=== PATIENT | male | born 1980 | race Caucasian/White ===

== ENCOUNTER → 2019-11-14 15:13 | Outpatient (BNVA) | payer MEDICAID, SELFPAY | PROVIDERS: Visit Provider Nurse Practitioner Psychiatric/Mental Health | DX: F11.99 Opioid use, unspecified with unspecified opioid-induced disorder (principal) | CPT/HCPCS: 99213 ==

== ENCOUNTER → 2019-11-28 16:35 | Outpatient (BNVA) | payer MEDICAID, SELFPAY | PROVIDERS: Visit Provider Nurse Practitioner Psychiatric/Mental Health | DX: Z13.89 Encounter for screening for other disorder (principal) | CPT/HCPCS: 99211 ==

== ENCOUNTER → 2019-12-04 15:23 | Outpatient (BNVA) | payer MEDICAID, SELFPAY | PROVIDERS: Visit Provider Internal Medicine | DX: F11.99 Opioid use, unspecified with unspecified opioid-induced disorder (principal) | CPT/HCPCS: 80305; 99211 ==

== ENCOUNTER → 2020-01-01 15:47 | Outpatient (BNVA) | payer MEDICAID, SELFPAY | PROVIDERS: Visit Provider Nurse Practitioner Psychiatric/Mental Health | DX: F11.20 Opioid dependence, uncomplicated (principal) | CPT/HCPCS: 80305 ==

== ENCOUNTER → 2020-01-29 15:00 | Outpatient (BNVA) | payer MEDICAID, SELFPAY | PROVIDERS: Visit Provider Nurse Practitioner Psychiatric/Mental Health | DX: F11.99 Opioid use, unspecified with unspecified opioid-induced disorder (principal) | CPT/HCPCS: 80305; 96372; 99211; J2315 ==

== ENCOUNTER → 2020-02-26 15:27 | Outpatient (BNVA) | payer MEDICAID, SELFPAY | PROVIDERS: Visit Provider Nurse Practitioner Psychiatric/Mental Health | DX: F11.99 Opioid use, unspecified with unspecified opioid-induced disorder (principal); Z51.81 Encounter for therapeutic drug level monitoring | CPT/HCPCS: 80305; 96372; 99211 ==

== ENCOUNTER → 2020-04-06 12:03 | Outpatient (BNVA) | payer MEDICAID, SELFPAY | PROVIDERS: Visit Provider Internal Medicine | DX: F11.99 Opioid use, unspecified with unspecified opioid-induced disorder (principal) | CPT/HCPCS: 99212 ==

== ENCOUNTER 2020-04-17 03:44 | Emergency (ER) | payer MEDICAID, SELFPAY ==
[2020-04-17 04:13] VITALS: BP 135/82; PULSE 64; RESP 16; TEMP 36.7; O2SAT 96; BMI 25.8
--- NOTE | 2020-04-17 05:26 | ED.EYEPROB ---
HPI - Eye Problem General Chief complaint: Eye Problems Stated complaint: Eye pain Time Seen by Provider: 04/17/20 05:15 Source: patient Mode of arrival: ambulatory History of Present Illness HPI Narrative: This is a 39-year-old male who states that he developed redness in his right eye for 2 days with greenish discharge and denies any associated fevers, chills, pain on movement, or itching. He then states he began developing similar symptoms in the left eye, but states that he initially thought some paint had gotten into his eye. Related Data Previous Rx's Medication Instructions Recorded naltrexone microspheres 380 mg 380 mg IM Q4W #1 ea 11/14/19 intramuscular suspension,extended release buprenorphine HCl 8 mg sublingual 8 mg SUBLINGUAL BID 7 Days #14 tab 04/07/20 tablet buprenorphine 8 mg-naloxone 2 mg 2 film SUBLINGUAL DAILY 5 Days #10 04/09/20 sublingual film ea Allergies Allergy/AdvReac Type Severity Reaction Status Date / Time naloxone Allergy Intermediate Rash, Verified 04/17/20 04:31 [From [facility] Naloxone] itching Penicillins Allergy Unknown HIVES/ITCHI Verified 04/17/20 04:31 NG acetaminophen [From Vicodin] AdvReac Intermediate Hives Verified 04/17/20 04:31 hydrocodone [From Vicodin] AdvReac Intermediate Hives Verified 04/17/20 04:31 Review of Systems Review of Systems: Pertinent positives and negatives as stated in HPI 10 point review of systems is otherwise negative. PMFSH Past Medical History Source: nursing notes reviewed Medical History Methadone maintenance therapy patient Opioid abuse Surgical History History of back surgery Social History Social History Smoking Status: Current every day smoker Use of substances other than those prescribed or required for medical reasons: Yes Substance Use Type: Crack/Cocaine and Heroin Substance Use Frequency: Chronic Longstanding Any prior treatment program specific to substance use: Yes (Patient is currently on Methadone) Advance Directives: No Physical Exam Vital Signs: Vital Signs: Last Vital Signs Temp 98.0 F 04/17/20 04:13 Pulse 64 04/17/20 04:13 Resp 16 04/17/20 06:00 BP 135/82 04/17/20 04:13 Pulse Ox 96 04/17/20 04:13 Body Mass Index 25.8 VITAL SIGNS: Reviewed. GENERAL: Well developed, well nourished, in no acute distress. HEAD: Normocephalic/atraumatic, EYES: PERRLA, EOMI intact without pain, conjunctival inflammation/injection but right more than left OROPHARYNX: no oral lesions noted, posterior pharynx clear NECK: Supple, no adenopathy LUNGS: Normal breath sounds. No adventitious sounds or accessory muscle use. SpO2<96> CARDIOVASCULAR: Regular rate and rhythm without noted murmurs ABDOMEN: Soft, non-tender, non-distended with bowel sounds. MUSCULOSKELETAL: No tenderness, deformities, or effusions noted on gross inspection. EXTREMITIES: No cyanosis, clubbing or edema. SKIN: Inspection of the skin reveals no rashes NEUROLOGIC: Alert and oriented x 4. Course Course Course Narrative: This is a 39-year-old male with history and clinical presentation most consistent with bacterial conjunctivitis and was provided with initial ophthalmological antibiotic here in the emergency department and then discharged with remaining prescription. In addition, patient was strongly encouraged to follow up with Optometry/naval gunfire spotter today for re-evaluation. Discharge Plan Discharge Clinical Impression: Bacterial conjunctivitis Patient Disposition: Home, Self-Care Instructions: Conjunctivitis (ED) Additional Instructions: Please follow-up with optometry/naval gunfire spotter today for re-evaluation of your eyes. Please use the antibiotic for your eyes as instructed. Do not hesitate to return to the emergency department should your symptoms not resolve or if they should worsen. Prescriptions: No Action Vivitrol 380 mg suspension,extended rel recon 380 mg IM Q4W Qty: 1 RF: 6 Hold Instructions: Doctor's Order buprenorphine HCl 8 mg tablet, sublingual 8 mg sublingual BID 7 Days Qty: 14 RF: 0 buprenorphine-naloxone [Suboxone] 8-2 mg film 2 film sublingual DAILY 5 Days Qty: 10 RF: 0 Referrals: Physician,None [Primary Care Provider] - 2 days
[2020-04-17 06:00] VITALS: RESP 16
[2020-04-17] MEDS: Erythromycin Base 0.5% Oph Oin 1 GM TUBE 1 CM EYE-BOTH (06:04)
== END 2020-04-17 06:30 | disposition home or self-care (01) ==
PROVIDERS: Emergency Provider Student in an Organized Health Care Education/Training Program
DX: H10.89 Other conjunctivitis (principal); F11.20 Opioid dependence, uncomplicated; F17.200 Nicotine dependence, unspecified, uncomplicated
CPT/HCPCS: 99283; 99284

== ENCOUNTER 2021-03-08 16:35 | Outpatient (REF) | payer MEDICAID, SELFPAY ==
--- NOTE | ~2021-03-08 | XR_ITS ---
EXAMINATION: XR TIBIA AND FIBULA, LEFT CLINICAL INFORMATION: Pain COMPARISON: None TECHNIQUE: AP and lateral views of the left tibia and fibula were obtained. FINDINGS: Bone alignment is normal. No fracture or dislocation is seen. The joint spaces are normal. There is slight soft tissue swelling over the upper fry. Soft tissues are otherwise normal. XR/XR tibia fibula LT 2V IMPRESSION: Soft tissue swelling over the upper fry otherwise unremarkable exam.
== END 2021-03-08 16:36 | disposition home or self-care (01) ==
LOC: HO.HMGCX 16:35
PROVIDERS: Visit Provider Physician Assistant
DX: M79.662 Pain in left lower leg (principal)
CPT/HCPCS: 73590

== ENCOUNTER 2021-11-14 14:09 | Emergency (ER) | payer MEDICAID, SELFPAY ==
[2021-11-14 14:20] VITALS: BP 116/83; PULSE 59; RESP 18; TEMP 36.9; O2SAT 98; BMI 25.1
--- NOTE | 2021-11-14 16:23 | PC.NURSE ---
pt presents with red abcess to right wrist. denies insect bite, or trauma- sts it is most likely due to IVD
--- NOTE | 2021-11-14 16:42 | ED_ITS ---
HPI - Skin/Abscess/Foreign Bdy General Chief complaint: Wound/Laceration Stated complaint: Abscess Time Seen by Provider: 11/14/21 16:39 Source: patient Mode of arrival: ambulatory Limitations: no limitations History of Present Illness HPI narrative: 41-year-old male presents for abscess to the left wrist. He infiltrated heroin outside of the vein to his left wrist 5 days ago, he has no suspicion of foreign body as the needle was intact when he removed it. Swelling and abscess started 4 days ago. He does not describe fevers or chills, and has full range of motion to his hand although it hurts when he moves his fingers. MD complaint: abscess/boil Onset (ago): day(s) (5) Tetanus up to date: no Location: LUE Severity: moderate Severity scale (1-10): 5 Quality: aching and constant Pain Consistency: constant Relieving factors: none Exacerbating factors: palpation and movement Context: IVDA Associated symptoms: denies other symptoms Treatments prior to arrival: attempted to drain pus at home Related Data Previous Rx's Medication Instructions Recorded sulfamethoxazole 800 1 tab PO Q12H 10 days #20 tabs 03/08/21 mg-trimethoprim 160 mg tablet (Bactrim DS) doxycycline monohydrate 100 mg 100 mg PO BID 10 days #20 caps 11/14/21 capsule sulfamethoxazole 800 1 tab PO Q12H 7 days #14 tabs 11/14/21 mg-trimethoprim 160 mg tablet (Bactrim DS) Allergies Allergy/AdvReac Type Severity Reaction Status Date / Time naloxone Allergy Intermediate Rash, Verified 03/08/21 16:04 [From [facility] Naloxone] itching Penicillins Allergy Unknown HIVES/ITCHI Verified 03/08/21 16:04 NG acetaminophen [From Vicodin] AdvReac Intermediate Hives Verified 03/08/21 16:04 hydrocodone [From Vicodin] AdvReac Intermediate Hives Verified 03/08/21 16:04 Review of Systems Review of Systems: Constitutional: No Fever, No Chills ENT/Mouth: No Ear Pain, No Hoarseness, No sore throat Eyes: No Eye Pain, No Swelling, No Redness, No Foreign Body Cardiovascular: No Chest Pain, No SOB Respiratory: No Cough, No Dyspnea Gastrointestinal: No Nausea, No Vomiting, No Diarrhea, No abdominal Pain Genitourinary: No Dysuria, No Hematuria Musculoskeletal: positive left wrist pain, No Myalgias, No Joint Swelling Skin: Left wrist abscess, No Skin lacerations, No rash Neuro: No Weakness, No Numbness, No Paresthesias, No Loss of Consciousness, No Dizziness, No Headache Psych: No Anxiety/Panic, No Depression Heme/Lymph: no easy bruising, no Lymphadenopathy Endocrine: No Polyuria, No Polydipsia Yes all other systems are reviewed and are negative [facility], [facility] Past Medical History Attestation statement: The following information was validated with the patient. Source: old records reviewed Medical History Methadone maintenance therapy patient Opioid abuse Surgical History History of back surgery Social History Social History Substance Use Type: Crack/Cocaine and Heroin Advance Directives: No Advance Directives Information Provided: Yes Physical Exam Vital Signs: Vital Signs: Last Vital Signs Temp 98.4 F 11/14/21 14:20 Pulse 59 11/14/21 14:20 Resp 18 11/14/21 14:20 BP 116/83 11/14/21 14:20 Pulse Ox 98 11/14/21 14:20 O2 Del Method 11/14/21 14:20 BMI result Body Mass Index 25.1 Appearance: Alert. Oriented X3. No acute distress. Eyes: Pupils equal, round and reactive to light. ENT: Pharynx normal. Neck: Normal inspection. Neck supple. CVS: Normal heart rate and rhythm. Pulses normal. Respiratory: No respiratory distress. Breath sounds normal. Abdomen: Soft and nontender. Skin: 4 cm x 3 cm erythematous indurated abscess to the radial aspect of the left wrist, 2 cm above the radial lunate. Extremities: No lower extremity edema. Strength 5/5 to all extremities. No flexion or extension tendon deficits. Neuro: No motor deficit. No sensory deficit. Cranial nerves 2-12 intact. Course Course Course Narrative: 41-year-old male presents with abscess to the left radial aspect of the wrist. Abscess started after he infiltrated heroin 5 days ago. Denies foreign body as the needle was intact upon removal. He just left detox and is declining recovery services at this time. Patient understands I&D process with abscess and agrees to plan of care. He has full range of motion, strength 5/5, radial pulses are equal, no indication of tenosynovitis, afebrile, nontoxic. Brisk capillary refill and +2 brachial and radial reflexes. 17:20 about 10 mL of purulent drainage expressed from the site. Packed with about 3 in of 1 in iodoform packing. Will update Tdap vaccine today, and give doxycycline as he has anaphylactic to penicillins. Culture sent. 18:00 patient continues with brisk capillary refill, full range of motion to all digits. Plan of care is to discharge home and have patient follow-up in 3 days. Patient verbalized understanding of and agrees plan of care discharge home. Verbalized understanding of signs and symptoms indicating need for emergent intervention. MDM - Skin/Abscess/Foreign Bdy Differential Diagnosis Differential diagnosis: Likely abscess of skin or subcutaneous tissue and cellulitis Medical Records Attestation: I reviewed the patient's medical records. Procedures Abscess I/D Site: upper extremity Side (if applicable): left Local Anesthetic: lidocaine 2% and with epi Amount of anesthesia used (mL): 6 Technique: incised with blade Amount of fluid expressed (mL): 10 Sent for culture/gram staining?: Yes Irrigation: Yes Packing used?: iodoform Discharge Plan Discharge Clinical Impression: Abscess Patient Disposition: Home, Self-Care Instructions: Abscess (ED), Abscess Follow-up (ED), Abscess Incision and Drainage (DC), Incision and Drainage (ED) Additional Instructions: You were evaluated for abscess to left wrist. Your cultures are pending. Please keep packing in place for 3 days. Return for wound check in 3 days. Take doxycycline 100 mg every 12 hours for the next 10 days. Take Bactrim DS every 12 hours for the next 7 days. Please consider detox. Monitor for signs and symptoms of infection. If you notice worsening pain or redness fevers chills please return to the emergency department for evaluation. Prescriptions: New doxycycline monohydrate 100 mg capsule 100 mg PO BID 10 Days Qty: 20 0RF sulfamethoxazole-trimethoprim [Bactrim DS] 800-160 mg tablet 1 tab PO Q12H 7 Days Qty: 14 0RF No Action sulfamethoxazole-trimethoprim [Bactrim DS] 800-160 mg tablet 1 tab PO Q12H 10 Days Qty: 20 0RF Interventions: ED Discharge Assessment Last Done: 11/14/21 18:40 Discharge Date/Time: 11/14/21 18:40
[2021-11-14] MEDS: Diphth,Pertus(ACell),Tet Adult 0.5 ML SYRINGE IM (18:02)
[2021-11-14] MEDS: Lidocaine HCl 2%/Epi 1:100,000 20 ML VIAL INFILTRATI (18:05)
== END 2021-11-14 18:40 | disposition home or self-care (01) ==
PROVIDERS: Emergency Provider Emergency Medicine Emergency Medical Services
DX: L02.414 Cutaneous abscess of left upper limb (principal); F11.19 Opioid abuse with unspecified opioid-induced disorder; Z79.899 Other long term (current) drug therapy
CPT/HCPCS: 10060; 87070; 87147; 87205; 90471; 90715; 99282; 99284

== ENCOUNTER 2021-11-30 10:13 | Emergency (ER) | payer MEDICAID, SELFPAY ==
--- NOTE | ~2021-11-30 | XR_ITS ---
EXAMINATION: XR TIBIA AND FIBULA, LEFT CLINICAL INFORMATION: Left lower extremity pain. COMPARISON: 02/26/2021 left tibia and fibula. TECHNIQUE: AP and lateral views of the left tibia and fibula were obtained. FINDINGS: The bones and soft tissues are normal. No fracture. No osseous lesions. XR/XR tibia fibula LT 2V IMPRESSION: Unremarkable left tibia and fibula. Previously seen anterior soft tissue swelling in the fry has decreased.
--- NOTE | ~2021-11-30 | US_ITS ---
EXAMINATION: US VENOUS ULTRASOUND WITH DOPPLER LOWER EXTREMITY, LEFT CLINICAL INFORMATION: Pain COMPARISON: None TECHNIQUE: Ultrasound of the deep veins is performed from the hip to the calf with compression sonography and color and pulse Doppler assessment. Spectral analysis with color-flow imaging is performed. FINDINGS: There is normal venous compression and respiratory variation and augmented flow. The visualized common femoral vein, superficial femoral vein, profunda femoral vein, popliteal vein, and the trifurcation region shows no evidence of deep venous thrombosis. There is no significant popliteal fossa cyst. US/US venous duplex LE LT IMPRESSION: No DVT demonstrated in the left lower extremity.
--- NOTE | ~2021-11-30 | XR_ITS ---
EXAMINATION: XR ANKLE, LEFT CLINICAL INFORMATION: Left ankle pain. COMPARISON: None TECHNIQUE: AP, lateral, and mortise views of the left ankle. FINDINGS: The bones and soft tissues are normal. No fracture. Alignment is anatomic. Joint spaces are maintained. No joint effusion. XR/XR ankle LT min 3V IMPRESSION: Unremarkable left ankle.
[2021-11-30 10:38] VITALS: BP 117/68; PULSE 60; RESP 18; TEMP 36.8; O2SAT 96; BMI 23.6
--- NOTE | 2021-11-30 11:15 | ED.EXTPRO ---
HPI - Extremity Problem General Chief complaint: Extremity Injury, Lower Stated complaint[facility] Time Seen by Provider: 11/30/21 10:30 Source: patient and EMS Mode of arrival: EMS Limitations: no limitations History of Present Illness HPI Narrative: 41yoM c PMHx of HCV, opioid and cocaine dependent currently was at [facility] for detox arrived yesterday presenting to the ED with complaints of a ?lump?, to his left lower leg with mild tenderness over the past few days. Reports that it is not that painful although he does not recall an injury. He did not want to come here although the staff at [facility] recommended he come here. They did report that he lost his bed due to coming to the ER that he will need to do a new intake. Otherwise he denies any recent falls, fevers, dizziness, headaches, chest pain or shortness of breath, dyspnea on exertion, orthopnea, palpitations, paresthesias, recent travel, recent mobilization, recent surgery, hypercoagulation disorder, any estrogen usage, calf tenderness, edema or any other symptoms complaints or concerns at this time. MD Complaint: extremity pain Onset (ago): day(s) (Past few days) Pain Consistency: constant Location: left and lower extremity Quality: aching Radiation: none Relieving factors: nothing Exacerbating factors: palpation Associated symptoms: denies other symptoms Related Data Previous Rx's Medication Instructions Recorded sulfamethoxazole 800 1 tab PO Q12H 10 days #20 tabs 03/08/21 mg-trimethoprim 160 mg tablet (Bactrim DS) doxycycline monohydrate 100 mg 100 mg PO BID 10 days #20 caps 11/14/21 capsule sulfamethoxazole 800 1 tab PO Q12H 7 days #14 tabs 11/14/21 mg-trimethoprim 160 mg tablet (Bactrim DS) naproxen 500 mg tablet 500 mg PO BID PRN pain #14 tabs 11/30/21 Allergies Allergy/AdvReac Type Severity Reaction Status Date / Time naloxone Allergy Intermediate Rash, Verified 03/08/21 16:04 [From [facility] Naloxone] itching Penicillins Allergy Unknown HIVES/ITCHI Verified 03/08/21 16:04 NG acetaminophen [From Vicodin] AdvReac Intermediate Hives Verified 03/08/21 16:04 hydrocodone [From Vicodin] AdvReac Intermediate Hives Verified 03/08/21 16:04 Review of Systems Review of Systems: Constitutional : No Weight loss, No Fever, No Chills, No Night Sweats, No Fatigue, No Malaise ENT/Mouth : No Hearing loss, No Ear Pain, No Nasal Congestion, No Sinus Pain, No Hoarseness, No sore throat, No Rhinorrhea, No Swallowing Difficulty Eyes: No Eye Pain, No Swelling, No Redness, No Foreign Body, No Discharge, No Vision Changes Cardiovascular : No Chest Pain, No SOB, No Dyspnea on Exertion, No Orthopnea, No Edema, No Palpitations Respiratory : No Cough, No Sputum, No Wheezing, No Smoke Exposure, No Dyspnea Gastrointestinal : No Nausea, No Vomiting, No Diarrhea, No Constipation, No abdominal Pain, No Hematochezia, No Melena Genitourinary : no irregular bleeding, No Dysuria, No Urinary Frequency, No Hematuria, No Urinary Incontinence, No Urgency, No Flank Pain, No Urinary Flow Changes, No Hesitancy Musculoskeletal : + left LLE joint pain, No Myalgias, No Joint Swelling Skin : No Skin Lesions, No rash Neuro : No Weakness, No Numbness, No Paresthesias, No Loss of Consciousness, No Dizziness, No Headache Psych : No Anxiety/Panic, No Depression, No SI/HI/AH/VH, No Social Issues, Heme/Lymph: No Bruising, No Bleeding,No Lymphadenopathy Endocrine : No Polyuria, No Polydipsia, No Temperature Intolerance Yes all other systems are reviewed and are negative [facility] Past Medical History Attestation statement: The following information was validated with the patient. Source: old records reviewed and nursing notes reviewed Medical History Methadone maintenance therapy patient Opioid abuse Surgical History History of back surgery Social History Social History Substance Use Type: Crack/Cocaine and Heroin Advance Directives: No Physical Exam Vital Signs: Vital Signs: Last Vital Signs Temp 98.2 F 11/30/21 10:38 Pulse 60 11/30/21 10:38 Resp 18 11/30/21 10:38 BP 117/68 11/30/21 10:38 Pulse Ox 96 11/30/21 10:38 O2 Del Method 11/30/21 10:38 BMI result Body Mass Index 23.6 vital signs have been reviewed as normal and appeared to be correct. Blood pressure normal Heart rate normal. Respiration rate normal. Temperature normal. Oxygen saturation normal. Appearance: Alert. Oriented X3. No acute distress. Head: Normal external exam. Normocephalic. Atraumatic. Eyes: PERRLA. EOMI. Conjunctiva and sclera normal. Eyelids normal. ENT: Pharynx normal. Uvula midline. Moist mucous membranes. Neck: Normal inspection. Neck supple. FROM. CVS: Normal heart rate and rhythm. Respiratory: No respiratory distress. Painless inspiration. Skin: Skin warm and dry. Normal skin color. Normal skin turgor. No rashes/lesions/lacerations noted. Extremities: Patient mild tenderness palpation to the distal aspect of the lateral lower leg with mild soft tissue swelling. No obvious deformities noted. Negative Mejia test. Achilles tendon is intact. Patient has full range of motion of all toe/foot and ankle joint and knee joint without any tenderness. There is no lower extremity edema or calf tenderness noted. Otherwise all other extremities exhibit normal range of motion nontender. Neuro: Oriented X 3. No motor deficit. No sensory deficit. Reflexes normal. Normal steady gait. No focal neuro deficits noted. Vascular: + radial pulses/+ 2 distal pedal pulses/+2 dorsalis pedis b/l. Normal cap refill. No cyanosis noted to upper extremity nails and lower extremity toes nails. Course Course Course Narrative: 41yoM c PMHx of HCV, opioid and cocaine dependent currently was at [facility] for detox arrived yesterday presenting to the ED with complaints of a ?lump?, to his left lower leg with mild tenderness over the past few days. Reports that it is not that painful although he does not recall an injury. He did not want to come here although the staff at [facility] recommended he come here. They did report that he lost his bed due to coming to the ER that he will need to do a new intake. Will obtain x-ray of tibia/fibula/left ankle and performed ultrasound of left lower extremity re-evaluate. Reevaluation(s) Reevaluation #1: - left ankle/tibia/fibula x-ray reveals soft tissue swelling that has decreased otherwise no other acute processes. Venous duplex ultrasound of left lower extremity negative for DVT or any other acute processes. Patient most likely muscular skeletal pain will DC home with symptomatic treatment an [place] wrap and instructions to return if any new or worsening symptoms. Will have care team work with the patient to see if the patient can get back into detox. Time: 13:40 Reevaluation #2: - patient is being accepted back to the detox at [facility] therefore he will be discharged and transported there at this time. Time: 14:47 MDM - Extremity (Nontraumatic) Medical Records Attestation: I reviewed the patient's medical records. Imaging Data Left tibia/fibula/left ankle x-ray: Attestation: I personally reviewed and interpreted this imaging study as follows: Radiologist's impression: FINDINGS: The bones and soft tissues are normal. No fracture. No osseous lesions. ? XR/XR tibia fibula LT 2V IMPRESSION: Unremarkable left tibia and fibula. Previously seen anterior soft tissue swelling in the fry has decreased. FINDINGS: The bones and soft tissues are normal. No fracture. Alignment is anatomic. Joint spaces are maintained. No joint effusion.? XR/XR ankle LT min 3V IMPRESSION: Unremarkable left ankle. Venous duplex ultrasound of left lower extremity: Attestation: I personally reviewed and interpreted this imaging study as follows: Radiologist's impression: FINDINGS: There is normal venous compression and respiratory variation and augmented flow. The visualized common femoral vein, superficial femoral vein, profunda femoral vein, popliteal vein, and the trifurcation region shows no evidence of deep venous thrombosis. ? There is no significant popliteal fossa cyst. US/US venous duplex LE LT IMPRESSION: No DVT demonstrated in the left lower extremity. Discharge Plan Discharge Clinical Impression: Muscle strain of left lower extremity Patient Disposition: Home, Self-Care Instructions: Musculoskeletal Pain (ED) Prescriptions: New naproxen 500 mg tablet 500 mg PO BID PRN (Reason: pain) Qty: 14 0RF No Action doxycycline monohydrate 100 mg capsule 100 mg PO BID 10 Days Qty: 20 0RF sulfamethoxazole-trimethoprim [Bactrim DS] 800-160 mg tablet 1 tab PO Q12H 7 Days Qty: 14 0RF sulfamethoxazole-trimethoprim [Bactrim DS] 800-160 mg tablet 1 tab PO Q12H 10 Days Qty: 20 0RF Referrals: Physician,None [Primary Care Provider] - (your pcp as needed )
--- NOTE | 2021-11-30 14:04 | MHC.RECOVRN ---
This senior writer met w/ pt. Pt is reporting no withdrawal symptoms at this time, pt reports received MTD dose at [facility] this a.m. This senior writer discussed w/ pt that most current ED note was faxed to [facility], currently being reviewed as confirmed by [facility], pt reminded that if their is no male bed at [facility] Addiction/Recovery team would do an ATS bedsearch. Pt verbalized understanding.
== END 2021-11-30 15:20 | disposition home or self-care (01) ==
PROVIDERS: Emergency Provider Emergency Medicine Emergency Medical Services
DX: M79.605 Pain in left leg (principal); R60.0 Localized edema; F14.10 Cocaine abuse, uncomplicated; F11.10 Opioid abuse, uncomplicated; Z79.899 Other long term (current) drug therapy
CPT/HCPCS: 73590; 73610; 93971; 99283; 99284

== ENCOUNTER 2021-12-12 09:11 | Emergency (ER) | payer MEDICAID, SELFPAY ==
[2021-12-12 09:18] VITALS: BP 119/57; PULSE 65; RESP 18; TEMP 36.4; O2SAT 98; BMI 24.7
--- NOTE | 2021-12-12 09:27 | ED_ITS ---
HPI - Wound/Laceration General Chief Complaint: General Medical Stated Complaint: Needs lab work? Time Seen by Provider: 12/12/21 09:22 Source: patient and family (Mother at bedside) Mode of arrival: ambulatory Limitations: no limitations History of Present Illness HPI narrative: 41-year-old male with a past medical history of IV drug use presenting to the ED with his mother at bedside with request for his blood to be drawn which include hepatitis and HIV status due to his mother stuck herself with 1 of his dirty needles that he used it she was seen here yesterday and was given antivirals. Patient reports he is unsure if he has hepatitis or HIV. He denies any symptoms at this time. He denies any thoughts of SI/HI/auditory visualizations thoughts of self-injury. Reports he is not interested detox at this time. He is requesting us to give all the information to his mother of his blood work and his medical records. Related Data Previous Rx's Medication Instructions Recorded sulfamethoxazole 800 1 tab PO Q12H 10 days #20 tabs 03/08/21 mg-trimethoprim 160 mg tablet (Bactrim DS) doxycycline monohydrate 100 mg 100 mg PO BID 10 days #20 caps 11/14/21 capsule sulfamethoxazole 800 1 tab PO Q12H 7 days #14 tabs 11/14/21 mg-trimethoprim 160 mg tablet (Bactrim DS) naproxen 500 mg tablet 500 mg PO BID PRN pain #14 tabs 11/30/21 Allergies Allergy/AdvReac Type Severity Reaction Status Date / Time naloxone Allergy Intermediate Rash, Verified 12/12/21 09:17 [From [facility] Naloxone] itching Penicillins Allergy Unknown HIVES/ITCHI Verified 12/12/21 09:17 NG acetaminophen [From Vicodin] AdvReac Intermediate Hives Verified 12/12/21 09:17 hydrocodone [From Vicodin] AdvReac Intermediate Hives Verified 12/12/21 09:17 Review of Systems Review of Systems: Constitutional : No Fever, No Chills ENT/Mouth : No Ear Pain, No Nasal Congestion, No sore throat Eyes: No Eye Pain, No Swelling, No Redness Cardiovascular : No Chest Pain, No SOB Respiratory : No Cough, No Sputum, No Dyspnea Gastrointestinal : No ingestions, No Nausea, No Vomiting, No Diarrhea, No Hematochezia, No Melena Genitourinary : No Dysuria, No Urinary Frequency, No Hematuria Musculoskeletal : No Myalgias Skin : No Skin Lesions, No rash Neuro : No Weakness, No Numbness, No Paresthesias, No Dizziness, No Headache Psych : No Anxiety, No Depression, No SI/HI, No AVH, No thoughts of self injury Heme/Lymph: No Lymphadenopathy Endocrine : No Polyuria, No Polydipsia Yes all other systems are reviewed and are negative [facility] Past Medical History Attestation statement: The following information was validated with the patient. Source: old records reviewed, obtained from family and nursing notes reviewed Medical History Methadone maintenance therapy patient Opioid abuse Surgical History History of back surgery Social History Social History Substance Use Type: Crack/Cocaine and Heroin Advance Directives: No Physical Exam Vital Signs: Vital Signs: Last Vital Signs Temp 97.5 F 12/12/21 09:18 Pulse 65 12/12/21 09:18 Resp 18 12/12/21 09:18 BP 119/57 L 12/12/21 09:18 Pulse Ox 98 12/12/21 09:18 O2 Del Method 12/12/21 09:18 BMI result Body Mass Index 24.7 vital signs have been reviewed as normal and appeared to be correct. Blood pressure normal Heart rate normal. Respiration rate normal. Temperature normal. Oxygen saturation normal. Appearance: Alert. Oriented X3. No acute distress. Head: Normal external exam. Normocephalic. Atraumatic. Eyes: PERRLA. EOMI. Conjunctiva and sclera normal. Eyelids normal. ENT: Pharynx normal. Uvula midline. Moist mucous membranes. Neck: Normal inspection. Neck supple. FROM. CVS: Normal heart rate and rhythm. Respiratory: No respiratory distress. Painless inspiration. Skin: Skin warm and dry. Normal skin color. Normal skin turgor. No rashes/lesions/lacerations noted. Extremities: Extremities exhibit normal range of motion. Extremities nontender. Neuro: Oriented X 3. No motor deficit. No sensory deficit. Reflexes normal. Normal steady gait. No focal neuro deficits noted. Vascular: + radial pulses/+ 2 distal pedal pulses/+2 dorsalis pedis b/l. Normal cap refill. No cyanosis noted to upper extremity nails and lower extremity toes nails. Course Course Course Narrative: 41-year-old male with a past medical history of IV drug use presenting to the ED with his mother at bedside with request for his blood to be drawn which include hepatitis and HIV status due to his mother stuck herself with 1 of his dirty needles that he used it she was seen here yesterday and was given antivirals. Patient reports he is unsure if he has hepatitis or HIV. He denies any symptoms at this time. He denies any thoughts of SI/HI/auditory visualizations thoughts of self-injury. Reports he is not interested detox at this time. He is requesting us to give all the information to his mother of his blood work and his medical records. - Labs obtained and patient mild anemia with an H&H of 12.9/39.4. BUN creatinine 17/1.49. AST 42. Otherwise all other labs are within normal limits. - pending HIV and hepatitis B and C status. - I offered the patient IV fluids although patient reports he can drink fluids as he is not having any nausea vomiting he would like to just be discharged at this time. Explained to him that he does have some dehydration due to his kidney function and patient was still like to be discharged. Explained that we can give his mother all of his results. MDM - Wound/Laceration Medical Records Attestation: I reviewed the patient's medical records. Lab Data Attestation: I reviewed the patient's lab results. Result diagrams: 12/12/21 09:29 12/12/21 09:29 Labs: Lab Results 12/12/21 12/12/21 Range/Units 09:29 09:29 WBC 5.7 (4.8-10.8) X10*3/uL RBC 5.18 (4.60-5.80) X10*6/uL Hgb 12.9 L (14.0-18.0) g/dl Hct 39.4 L (42.0-52.0) % MCV 76.1 L (80.0-98.0) fL MCH 24.9 L (27.0-33.0) pg MCHC 32.7 (31.0-36.0) g/dl RDW 14.4 (11.0-16.0) % Plt Count 224 (160-400) X10*3/uL MPV 8.9 L (9.4-12.4) fL Immature Gran % (Auto) 0.2 (0.0-0.4) % Neut % (Auto) 66.3 (45-73) % Lymph % (Auto) 21.0 (20-40) % [place] % (Auto) 10.8 (2-11) % Eos % (Auto) 1.2 (0-4) % Baso % (Auto) 0.5 (0-2) % Lymph # (Auto) 1.2 (1.2-4.9) X10*3/uL [place] # (Auto) 0.6 (0.1-1.2) X10*3/uL Eos # (Auto) 0.1 (0.0-0.4) X10*3/uL Baso # (Auto) 0.0 (0.0-0.2) X10*3/uL Abs Immat Gran (auto) 0.01 (0.00-0.03) X10*3/uL Absolute Neuts (auto) 3.8 (2.0-8.3) x10*3/uL Absolute Nucleated RBC 0.000 (0.0-0.012) X10*3/uL Nucleated RBC % (auto) 0.0 (0.0-0.2) /100WBC Sodium 138 (135-145) mmol/L Potassium 4.1 (3.3-5.1) mmol/L Chloride 102 (96-108) mmol/L Carbon Dioxide 24 (22-29) mmol/L Anion Gap 16 (12-20) BUN 17 H (9-16) mg/dL Creatinine 1.49 H (0.5-1.4) mg/dL Estim Creat Clear Calc 65.2 Estimated GFR 52 Random Glucose 102 (60-115) mg/dL Calcium 9.0 (8.4-10.2) mg/dL Magnesium 2.2 (1.6-2.6) mg/dL Total Bilirubin 0.6 (0.0-1.0) mg/dL AST 42 H (5-37) U/L ALT 36 (0-40) U/L Alkaline Phosphatase 84 (39-117) U/L Total Protein 7.0 (6.5-8.0) g/dL Albumin 3.7 (3.5-5.0) g/dL Discharge Plan Discharge Clinical Impression: Drug usage, ROBERTA (acute kidney injury) Patient Disposition: Home, Self-Care Instructions: Polysubstance Abuse (ED) Additional Instructions: Your Mother was stuck by a needle that you used and you gave her permission to have your lab information given to your mother this will return in 5-7 days. Prescriptions: No Action doxycycline monohydrate 100 mg capsule 100 mg PO BID 10 Days Qty: 20 0RF sulfamethoxazole-trimethoprim [Bactrim DS] 800-160 mg tablet 1 tab PO Q12H 7 Days Qty: 14 0RF naproxen 500 mg tablet 500 mg PO BID PRN (Reason: pain) Qty: 14 0RF sulfamethoxazole-trimethoprim [Bactrim DS] 800-160 mg tablet 1 tab PO Q12H 10 Days Qty: 20 0RF Referrals: Physician,None [Primary Care Provider] - 2 days (your pcp) Interventions: ED Discharge Assessment Last Done: 12/12/21 09:50 Discharge Date/Time: 12/12/21 09:55
--- NOTE | 2021-12-12 09:28 | PC.NURSE ---
patient verbally gave permission to allow the mother to have results of the blood testing.
[2021-12-12 09:33] LABS: MANUAL DIFF FLAG NO
[2021-12-12 09:34] LABS: Basophils Percent Auto 0.5 % (0-2); Eosinophils Absolute Auto 0.1 X10*3/uL (0.0-0.4); Eosinophils Percent Auto 1.2 % (0-4); Hematocrit 39.4 % (42.0-52.0); Hemoglobin 12.9 g/dl (14.0-18.0); Imm Gran Abs Auto 0.01 X10*3/uL (0.00-0.03); Imm Gran Pct Auto 0.2 % (0.0-0.4); Lymphocytes Absolute Auto 1.2 X10*3/uL (1.2-4.9); Mean Corpuscular HGB Conc 32.7 g/dl (31.0-36.0); Mean Corpuscular Hemoglobin 24.9 pg (27.0-33.0); Mean Corpuscular Volume 76.1 fL (80.0-98.0); Mean Platelet Volume 8.9 fL (9.4-12.4); Monocytes Absolute Auto 0.6 X10*3/uL (0.1-1.2); Monocytes Percent Auto 10.8 % (2-11); Neutrophils Absolute Auto 3.8 x10*3/uL (2.0-8.3); Neutrophils Percent Auto 66.3 % (45-73); Platelet Count 224 X10*3/uL (160-400); Red Blood Count 5.18 X10*6/uL (4.60-5.80); Red Cell Distribution Width 14.4 % (11.0-16.0); White Blood Count 5.7 X10*3/uL (4.8-10.8)
[2021-12-12 09:52] LABS: Alanine Aminotransferase 36 U/L (0-40); Albumin Level 3.7 g/dL (3.5-5.0); Alkaline Phosphatase 84 U/L (39-117); Anion Gap 16 (12-20); Aspartate Amino Transferase 42 U/L (5-37); Bilirubin Total 0.6 mg/dL (0.0-1.0); Blood Urea Nitrogen 17 mg/dL (9-16); Carbon Dioxide 24 mmol/L (22-29); Chloride 102 mmol/L (96-108); Creatinine Clr Calc Pharmacy 65.2; Estimated Glomerular Filt Rate 52; Glucose Random 102 mg/dL (60-115); Magnesium 2.2 mg/dL (1.6-2.6); Potassium 4.1 mmol/L (3.3-5.1); Sodium 138 mmol/L (135-145)
[2021-12-13 05:22] LABS: HBc Num1 0.09 S/CO (0.00-0.79); HBsAGNum1 1.28 S/CO (0.00-0.99); HIV AB/AG Nonreactive (Nonreactive); HIV Num 1 0.14 S/CO (0.00-0.99); Hepatitis B Core Antibody Nonreactive (Nonreactive); ~HepC Num1 14.54 S/CO (0.00-0.79); ~Hepatitis B Surface Antibody REACTIVE (Nonreactive); ~Hepatitis C Antibody Reactive (Nonreactive)
[2021-12-13 06:39] LABS: HBsAGNum2 Nonreactive; HBsAGNum3 Nonreactive; Hepatitis B Surface Antigen NEGATIVE (Negative)
== END 2021-12-12 09:55 | disposition home or self-care (01) ==
LOC: HO.ED 09:52
PROVIDERS: Physician Assistant Medical; Emergency Provider Emergency Medicine
DX: F14.19 Cocaine abuse with unspecified cocaine-induced disorder (principal); F14.10 Cocaine abuse, uncomplicated; Z79.899 Other long term (current) drug therapy
CPT/HCPCS: 36415; 80053; 83735; 85025; 86704; 86706; 86803; 87340; 87389; 99282; 99283

== ENCOUNTER 2022-01-21 01:46 | Emergency (ER) | payer MEDICAID, SELFPAY ==
[2022-01-21] VITALS (8 sets, daily range): BP systolic 114–133; BP diastolic 48–75; PULSE 72–94; RESP 16–20; TEMP 37.3–39.6; O2SAT 93–100; BMI 22.1
--- NOTE | 2022-01-21 01:56 | ED.GENADULT ---
HPI - General Adult General Chief complaint: Extremity Problem Stated complaint: foot pain right Time Seen by Provider: 01/21/22 01:50 Source: patient and EMS Mode of arrival: EMS Limitations: no limitations History of Present Illness HPI narrative: Patient comes to the emergency room complaining pain in the dorsum of his right foot. Patient states it has been hurting for about 3 days. Also, patient complaining because it is very cold outside, he has been out in the snow, is hungry, requesting food and water. Related Data Previous Rx's Medication Instructions Recorded sulfamethoxazole 800 1 tab PO Q12H 10 days #20 tabs 03/08/21 mg-trimethoprim 160 mg tablet (Bactrim DS) doxycycline monohydrate 100 mg 100 mg PO BID 10 days #20 caps 11/14/21 capsule sulfamethoxazole 800 1 tab PO Q12H 7 days #14 tabs 11/14/21 mg-trimethoprim 160 mg tablet (Bactrim DS) naproxen 500 mg tablet 500 mg PO BID PRN pain #14 tabs 11/30/21 cephalexin 500 mg capsule 500 mg PO BID #13 caps 01/21/22 Allergies Allergy/AdvReac Type Severity Reaction Status Date / Time naloxone Allergy Intermediate Rash, Verified 12/12/21 09:17 [From [facility] Naloxone] itching Penicillins Allergy Unknown HIVES/ITCHI Verified 12/12/21 09:17 NG acetaminophen [From Vicodin] AdvReac Intermediate Hives Verified 12/12/21 09:17 hydrocodone [From Vicodin] AdvReac Intermediate Hives Verified 12/12/21 09:17 Review of Systems Review of Systems: Constitutional : No Weight loss, No Fever, No Chills, No Night Sweats, No Fatigue, No Malaise complaining of feeling hungry, and feeling cold, patient has with close ENT/Mouth : No Hearing loss, No Ear Pain, No Nasal Congestion, No Sinus Pain, No Hoarseness, No sore throat, No Rhinorrhea, No Swallowing Difficulty Eyes: No Eye Pain, No Swelling, No Redness, No Foreign Body, No Discharge, No Vision Changes Cardiovascular : No Chest Pain, No SOB, No Dyspnea on Exertion, No Orthopnea, No Edema, No Palpitations Respiratory : No Cough, No Sputum, No Wheezing, No Smoke Exposure, No Dyspnea Gastrointestinal : No Nausea, No Vomiting, No Diarrhea, No Constipation, No abdominal Pain, No Hematochezia, No Melena Genitourinary : no irregular bleeding, No Dysuria, No Urinary Frequency, No Hematuria, No Urinary Incontinence, No Urgency, No Flank Pain, No Urinary Flow Changes, No Hesitancy Musculoskeletal : No joint pain, No Myalgias, No Joint Swelling Skin : Complaining of skin erythema and pain in the dorsum of the right foot Neuro : No Weakness, No Numbness, No Paresthesias, No Loss of Consciousness, No Dizziness, No Headache Psych : No Anxiety/Panic, No Depression, No SI/HI/AH/VH, No Social Issues, Heme/Lymph: No Bruising, No Bleeding,No Lymphadenopathy Endocrine : No Polyuria, No Polydipsia, No Temperature Intolerance PMFSH Past Medical History Medical History Methadone maintenance therapy patient Opioid abuse Surgical History History of back surgery Social History Social History Smoked in Last 30 Days: Yes Use of substances other than those prescribed or required for medical reasons: Yes Substance Use Type: Crack/Cocaine and Heroin Substance Use Frequency: Daily Advance Directives: No Advance Directives Information Provided: No Physical Exam ED Vital Signs: Vital Signs - 24 hr 01/21/22 02:03 01/21/22 02:08 01/21/22 02:56 Temperature 99.6 F Pulse Rate 74 74 Respiratory Rate 16 16 Blood Pressure 133/56 L 133/56 L Pulse Oximetry 98 98 Oxygen Delivery Method Room Air Room Air 01/21/22 03:30 01/21/22 06:04 01/21/22 07:14 Temperature 99.1 F 101.2 F H 103.2 F H Pulse Rate 76 94 85 Respiratory Rate 17 16 20 Blood Pressure 123/69 127/75 118/75 Pulse Oximetry 100 95 94 Oxygen Delivery Method Room Air Room Air Room Air BMI result Body Mass Index 22.1 Const Other: Appearance: Alert. Oriented X3. No acute distress. Patient looks cold, she bring, has with close own Eyes: Pupils equal, round and reactive to light. ENT: Pharynx normal. Neck: Normal inspection. Neck supple. No lymph nodes noted. No crepitus CVS: Normal heart rate and rhythm. Pulses normal. Normal S1 and S2 Respiratory: No respiratory distress. Breath sounds normal. No Wheezing. No rales Abdomen: Soft and nontender. No rigidity. No distention. Skin: Skin warm and dry. Very mild 3 x 3 erythematous patch in the dorsum of the right foot, no abscesses, no cuts. Extremities: No lower extremity edema. No Lacerations. No Rash Neuro: Oriented X 3. No motor deficit. No sensory deficit. Moving all extremities. No slurred speech. CN 2 through 12 grossly intact Psych: calm, cooperative, normal affect Course Course Course Narrative: Will go ahead and get some basic labs. Patient being we warmed, being provided with p.o. solids and liquids White blood cell count and lactic acid within normal limits. Normal blood pressure, sepsis not suspected. Patient will be treated with Keflex p.o.. Prior to discharge, patient's vitals were checked, patient has a fever of 101.2. Patient is being tested for COVID, influenza, RSV. Please follow-up serology. Sign-out given to Dr. Milner Medications Administered Discontinued Medications Generic Name Dose Route Start Last Admin Trade Name Freq PRN Reason Stop Dose Admin Cephalexin HCl 500 mg 01/21/22 02:57 01/21/22 03:08 Cephalexin 250 Mg Capsule PO 01/21/22 02:58 500 mg ONCE ONE Administration Medical Decision Making Differential Diagnosis Cellulitis, frostbite, contusion Lab Data [facility] Lab Attestation statement: I reviewed the patient's lab results. Result Diagrams: 01/21/22 02:27 01/21/22 02:27 Labs: Lab Results 01/21/22 01/21/22 01/21/22 Range/Units 02:27 02:27 02:27 WBC 6.4 (4.8-10.8) X10*3/uL RBC 4.98 (4.60-5.80) X10*6/uL Hgb 12.0 L (14.0-18.0) g/dl Hct 37.4 L (42.0-52.0) % MCV 75.1 L (80.0-98.0) fL MCH 24.1 L (27.0-33.0) pg MCHC 32.1 (31.0-36.0) g/dl RDW 14.3 (11.0-16.0) % Plt Count 228 (160-400) X10*3/uL MPV 9.0 L (9.4-12.4) fL Immature Gran % (Auto) 0.5 H (0.0-0.4) % Neut % (Auto) 79.3 H (45-73) % Lymph % (Auto) 12.1 L (20-40) % [place] % (Auto) 6.7 (2-11) % Eos % (Auto) 1.1 (0-4) % Baso % (Auto) 0.3 (0-2) % Lymph # (Auto) 0.8 L (1.2-4.9) X10*3/uL [place] # (Auto) 0.4 (0.1-1.2) X10*3/uL Eos # (Auto) 0.1 (0.0-0.4) X10*3/uL Baso # (Auto) 0.0 (0.0-0.2) X10*3/uL Abs Immat Gran (auto) 0.03 (0.00-0.03) X10*3/uL Absolute Neuts (auto) 5.1 (2.0-8.3) x10*3/uL Absolute Nucleated RBC 0.000 (0.0-0.012) X10*3/uL Nucleated RBC % (auto) 0.0 (0.0-0.2) /100WBC Sodium 134 L (135-145) mmol/L Potassium 3.9 (3.3-5.1) mmol/L Chloride 99 (96-108) mmol/L Carbon Dioxide 25 (22-29) mmol/L Anion Gap 14 (12-20) BUN 17 H (9-16) mg/dL Creatinine 0.84 (0.5-1.4) mg/dL Estim Creat Clear Calc 111.3 Estimated GFR > 60 Random Glucose 123 H (60-115) mg/dL Lactic Acid 1.6 (0.5-2.0) mmol/L Calcium 8.5 (8.4-10.2) mg/dL Tests considered The following testing was considered but not selected: X-ray was considered, however patient has no history of trauma. Patient is ambulatory, no deformity. Prescription Management I considered prescription management with: Antibiotic (Patient will be treated with p.o. Keflex, doxycycline was considered. However, patient does not have any pus or abscess, the cellulitis is very mild) Discharge Plan Discharge Clinical Impression: Cellulitis, Sensation of feeling cold Patient Disposition: Home, Self-Care Instructions: Cellulitis (ED) Additional Instructions: Please follow-up with your primary care physician tomorrow. If you have any worsening or new symptoms, please return to the emergency room or call 911 Prescriptions: New cephalexin 500 mg capsule 500 mg PO BID Qty: 13 0RF No Action doxycycline monohydrate 100 mg capsule 100 mg PO BID 10 Days Qty: 20 0RF sulfamethoxazole-trimethoprim [Bactrim DS] 800-160 mg tablet 1 tab PO Q12H 7 Days Qty: 14 0RF naproxen 500 mg tablet 500 mg PO BID PRN (Reason: pain) Qty: 14 0RF sulfamethoxazole-trimethoprim [Bactrim DS] 800-160 mg tablet 1 tab PO Q12H 10 Days Qty: 20 0RF
[2022-01-21 02:34] LABS: Basophils Percent Auto 0.3 % (0-2); Eosinophils Absolute Auto 0.1 X10*3/uL (0.0-0.4); Eosinophils Percent Auto 1.1 % (0-4); Hematocrit 37.4 % (42.0-52.0); Imm Gran Abs Auto 0.03 X10*3/uL (0.00-0.03); Imm Gran Pct Auto 0.5 % (0.0-0.4); Lymphocytes Absolute Auto 0.8 X10*3/uL (1.2-4.9); Lymphocytes Percent Auto 12.1 % (20-40); MANUAL DIFF FLAG NO; Mean Corpuscular HGB Conc 32.1 g/dl (31.0-36.0); Mean Corpuscular Hemoglobin 24.1 pg (27.0-33.0); Mean Corpuscular Volume 75.1 fL (80.0-98.0); Monocytes Absolute Auto 0.4 X10*3/uL (0.1-1.2); Monocytes Percent Auto 6.7 % (2-11); Neutrophils Absolute Auto 5.1 x10*3/uL (2.0-8.3); Neutrophils Percent Auto 79.3 % (45-73); Platelet Count 228 X10*3/uL (160-400); Red Blood Count 4.98 X10*6/uL (4.60-5.80); Red Cell Distribution Width 14.3 % (11.0-16.0); White Blood Count 6.4 X10*3/uL (4.8-10.8)
[2022-01-21 02:47] LABS: Lactic Acid 1.6 mmol/L (0.5-2.0)
[2022-01-21 02:50] LABS: Anion Gap 14 (12-20); Blood Urea Nitrogen 17 mg/dL (9-16); Calcium 8.5 mg/dL (8.4-10.2); Carbon Dioxide 25 mmol/L (22-29); Chloride 99 mmol/L (96-108); Creatinine Clr Calc Pharmacy 111.3; Estimated Glomerular Filt Rate > 60; Glucose Random 123 mg/dL (60-115); Potassium 3.9 mmol/L (3.3-5.1); Sodium 134 mmol/L (135-145)
[2022-01-21] MEDS: cephALEXin 250 MG CAPSULE 500 MG PO (03:08)
--- NOTE | 2022-01-21 06:17 | PC.NURSE ---
Per Dr. Faye, pt was allowed to stay in the ER to warm up and get some rest. At 0600, I went in to discharge the pt. During discharge vitals, pt was found to have an increased temperature of 101.2 orally. Temperature was reported to Dr Faye who then ordered a SARS/Flu/COVID for the pt. Pt will remain with us at this time.
[2022-01-21 06:52] LABS: Influenza A PCR POSITIVE (Negative); Influenza B PCR NEGATIVE (Negative); Resp Syncy Virus RNA Qual PCR NEGATIVE (Negative); SARS COV2 PCR INHOUSE NEGATIVE (Negative)
[2022-01-21] MEDS: Acetaminophen 325 MG TABLET 650 MG PO (08:01)
[2022-01-21] MEDS: Ketorolac Tromethamine 30 MG/ML VIAL 15 MG IM (08:02)
--- NOTE | 2022-01-21 08:11 | PC.NURSE ---
PT SLEEPING, HE WAS MEDICATED FOR HIS FEVER, HE IS POSITIVE FOR THE FLU. HE IS DIAPHORETIC/FLUSH. HE IS ASKING TO SPEAK WITH A PHOTOCOPIER TECHNICIAN FOR DETOX PLACEMENT
--- NOTE | 2022-01-21 09:41 | MHC.RECOVRN ---
This residential mortgage underwriter met w/ pt, pt was in bed, eyes closed, alert to verbal stimuli. This residential mortgage underwriter reviewed that due to positive result for FLU Addiction/Recovery team not able to make referral to detox. Pt when feeling better to f/u from the community with detox and [facility]. Detox resource handout and [facility] information left at bedside for pt.
--- NOTE | 2022-01-21 09:42 | PC.NURSE ---
SPOKE WITH CARE TEAM STAFF, UNFORTUNATELY PT IS UNABLE TO BE REFERRED FOR DETOX WITH CURRENT FLU DX. PLAN IS FOR DISCHARGE
--- NOTE | 2022-01-21 09:52 | PC.NURSE ---
PT AMBULATES TO THE BATHROOM, GIVEN A SANDWICH AND HAS TOLERATED PO FLUID INTAKE
--- NOTE | 2022-01-21 10:26 | PC.NURSE ---
PT GIVEN DRY CLOTHES AND SHOES, HE STATES HE IS GOING TO JUST SAY HE IS SI SO WE CAN SEND HIM TO THE [facility]. PT STATED HE IS NOT SI HE JUST HAS NOWHERE TO GO AND IS NOT FEELING WELL. HE WAS GIVEN FOOD AT TIME OF DISCHARGE
== END 2022-01-21 10:28 | disposition home or self-care (01) ==
PROVIDERS: Emergency Medicine; Emergency Provider Student in an Organized Health Care Education/Training Program
DX: J11.1 Influenza due to unidentified influenza virus with other respiratory manifestations (principal); L03.115 Cellulitis of right lower limb; Z20.822 Contact with and (suspected) exposure to COVID-19; R50.9 Fever, unspecified; F11.20 Opioid dependence, uncomplicated
CPT/HCPCS: 0241U; 36415; 80048; 83605; 85025; 87040; 96372; 99284; J1885